=== PATIENT | female | born 1950 | race Caucasian/White ===

== ENCOUNTER 2017-12-26 13:58 | Emergency (ER) | payer OTHER ==
[2017-12-26] MEDS ORDERED: LET GEL TOPICAL 1 EA SYR TP ONE (14:10)
[2017-12-26] MEDS ORDERED: TDAP ADULT 0.5 ML INJ (BOOSTRIX) IM ONE (14:24)
--- NOTE | 2017-12-26 14:54 | EDPHY ---
H & P Time Seen by Provider: 12/26/17 14:06 HPI/ROS: This patient had a mechanical fall while hiking shortly prior to arrival landing with arm verses a rock sustaining a laceration to her right proximal forearm just distal to the elbow with mild pain and moderate bleeding that slowed with direct pressure prior to arrival. The incident occurred 2 hr prior to arrival and she is brought in by her for evaluation. ROS: She felt well prior to the fall without any antecedent constitutional symptoms. HEENT: She did not strike her head in the fall. Musculoskeletal: No midline neck or back pain from the fall. No underlying bony pain or report of any other injuries from the fall. Integumentary: She reports a superficial abrasion to the right knee in addition. No other wounds. Neuro: No numbness or tingling the affected arm. No other neuro symptoms. 5 point ROS is otherwise negative. Past Medical/Surgical History: Last tetanus shot was more than 10 years ago. Otherwise healthy Smoking Status: Never smoked Physical Exam: Physical Exam Vital signs are normal. General: No acute distress HEENT: Atraumatic. Eyes: Pupils equal and react to light. Extraocular motions are intact. Lungs: No respiratory distress. Cardiac: Brisk capillary refill is intact throughout. Pulses are 2+ and symmetric in the affected extremity. Skin: 5 and 0.5 cm full-thickness triangle shaped laceration to the volar aspect of the right proximal forearm just distal to the elbow. Subcutaneous tissues evident. The bursa another underlying structures are intact. No foreign bodies and direct examination. She also has a very superficial abrasion to the right prepatellar area with no full-thickness wounds are underlying tenderness. No rash or pallor. Neuro: Alert and oriented x3 with no sensorimotor deficits in the affected extremity. Constitutional: Initial Vital Signs Temperature (C) 36.8 C 12/26/17 14:20 Heart Rate 72 12/26/17 14:20 Respiratory Rate 16 12/26/17 14:20 Blood Pressure 127/65 H 12/26/17 14:20 O2 Sat (%) 97 12/26/17 14:20 O2 Delivery Mode Room Air Allergies/Adverse Reactions: No Known Allergies Allergy (Unverified 12/26/17 14:19) Home Medications: Medication Instructions Recorded NK [No Known Home Meds] 12/26/17 MDM/Departure - MDM Procedures: The wound is 5 now cm in length, full-thickness, described physical exam. The wound was copiously irrigated with saline. The wound was explored for foreign bodies and none were found. The wound was prepped and draped in the normal sterile fashion. The wound was anesthetized using a 50 50 mix of 1% plain lidocaine and 0.5% Marcaine total of 8 mL with 27 gauge needle with good effect.. The edges were reapproximated using 4 0 Prolene -1 interrupted suture and 14 running sutures with good hemostasis and cosmesis. The patient tolerated the procedure well. There were no complications. Medications Given: Discontinued Medications Diphtheria/Tetanus/Acell Pertussis (Boostrix) 0.5 ml IM .ONCE ONE Stop: 12/26/17 14:25 Last Admin: 12/26/17 14:29 Dose: 0.5 ml ED Course/Re-evaluation: Tetanus booster IM Discussion: Simple laceration without evidence of complications, bony injury or other complicating factors. the patient is instructed in wound care and given return precautions. - Depart Disposition: Home, Routine, Self-Care Clinical Impression: Abrasion, right knee, initial encounter Arm laceration Qualifiers: Encounter type: initial encounter Laterality: right Qualified Code(s): S41.111A - Laceration without foreign body of right upper arm, initial encounter Condition: Good Instructions: Care For Your Stitches (ED) Additional Instructions: Diagnosis: Arm laceration Plan: Keep the wound clean and dry for the next 2 days. Then clean it daily with warm soapy water. Tylenol or ibuprofen for discomfort if needed Return for suture removal in 12 days Return sooner if he develops redness, discharge or other concerns for infection. Referrals: Doris Solis MD [Primary Care Provider] - As per Instructions
[2017-12-26 15:54] VITALS: BP 122/72
== END 2017-12-26 15:15 | disposition home or self-care (01) ==
LOC: CED 13:58
PROC: 0HQDXZZ Repair Right Lower Arm Skin, External Approach (ICD-10-PCS; principal; 2017-12-26)
DX: S51.811A Laceration without foreign body of right forearm, initial encounter (principal); S80.211A Abrasion, right knee, initial encounter; Z23 Encounter for immunization; W18.09XA Striking against other object with subsequent fall, initial encounter; Y99.8 Other external cause status; Y93.01 Activity, walking, marching and hiking

== ENCOUNTER 2018-01-07 13:36 | Emergency (ER) | payer OTHER ==
[2018-01-07] MEDS ORDERED: CEPHALEXIN 500 MG CAP PO ONE (13:41)
[2018-01-07 13:43] VITALS: BP 109/58
--- NOTE | 2018-01-07 13:45 | EDPHY ---
H & P Time Seen by Provider: 01/07/18 13:36 HPI/ROS: This patient presents today's post suture placement by myself in her right proximal forearm after fall on rocks while hiking. Wound was clean and throat irrigated but she presents now with redness to the wound margin. She came in for wound evaluation for potential suture removal but was checked in as a new visit given the evidence of local wound infection. She reports mild tenderness , redness discomfort with crusting and very slight discharge over the past 24 hr. ROS: Constitutional: No fevers. Neuro: Numbness or tingling GI: No nausea vomiting 5 point ROS is otherwise negative Past Medical/Surgical History: Recent visit for forearm laceration Smoking Status: Never smoked Physical Exam: Physical Exam Vital signs are normal. General: No acute distress Eyes: Pupils equal and react to light. Extraocular motions are intact. Lungs: No respiratory distress. Cardiac: Brisk capillary refill is intact throughout. Pulses are 2+ and symmetric in the affected extremity. Skin: Patient's flap-type laceration on the proximal right forearm-volar aspect has sutures in place with erythema slight warmth to touch. There is honey crusting appearance to the wound margin at the apex of this wound. I removed the suture at the apex massage the area without any purulent discharge. Neuro: Alert and oriented x3 with no sensorimotor deficits. Initial differential diagnosis: Superficial wound infection, contact dermatitis , nonspecific dermatitis Constitutional: Initial Vital Signs Temperature (C) 36.9 C 01/07/18 13:41 Heart Rate 64 01/07/18 13:41 Respiratory Rate 16 01/07/18 13:41 Blood Pressure 109/58 L 01/07/18 13:41 O2 Sat (%) 94 01/07/18 13:41 O2 Delivery Mode Room Air Allergies/Adverse Reactions: No Known Allergies Allergy (Verified 01/07/18 13:41) Home Medications: Medication Instructions Recorded Cephalexin [Keflex (*)] 500 mg PO TID #21 cap 01/07/18 MDM/Departure - MDM Medications Given: Discontinued Medications Cephalexin HCl (Keflex) 500 mg PO EDNOW ONE PRN Reason: Protocol Stop: 01/07/18 13:42 Last Admin: 01/07/18 13:44 Dose: 500 mg ED Course/Re-evaluation: Obtained wound culture. Patient was then counseled regarding wound care, wound infection the wound was then scrubbed by our tech . I removed the suture from the apex of the wound still with no purulent discharge. Patient tolerated this well. She is placed in a dressing. Will treat her with Keflex antibiotic-1st dose given here with plan to return on SundayJanuary 11 for suture removal. She understands need to return sooner should she develop any worsening of her symptoms despite treatment plan. - Depart Disposition: Home, Routine, Self-Care Clinical Impression: Wound infection Condition: Good Instructions: Wound Infection (ED) Additional Instructions: Diagnosis: Wound infection Plan: Apply warm packs to 3 times a day until redness resolved Take Keflex antibiotic as prescribed Gently clean wound daily with warm soapy water Return for suture removal this January 11. Return sooner if he develops increasing redness, onset of fevers, significant drainage or other concerns. Referrals: Patient,NotPresent [Primary Care Provider] - As per Instructions Rylie Parsons MD [Medical Doctor] - As per Instructions
[2018-01-07] MEDS ORDERED: LET GEL TOPICAL 1 EA SYR TP ONE (13:51)
== END 2018-01-07 14:00 | disposition home or self-care (01) ==
LOC: CED 13:36
DX: T81.4XXA Infection following a procedure, initial encounter (principal); Y82.8 Other medical devices associated with adverse incidents

== ENCOUNTER → 2018-10-24 | Outpatient (CLI) | payer OTHER | LOC: CIMAGING 10-09 10:22 → FIMAGING 13:40 | PROVIDERS: ATTEND Internal Medicine | DX: Z12.31 Encounter for screening mammogram for malignant neoplasm of breast (principal) ==